=== PATIENT | male | born 1980 | race Caucasian/White ===

== ENCOUNTER 2023-09-25 12:57 | Emergency (ER) | payer OTHER ==
[2023-09-25 13:02] VITALS: BMI 22.3
[2023-09-25] MEDS ORDERED: ACETAMINOPHEN 325 MG TABLET (FP) PO ONE (13:43)
[2023-09-25] MEDS ORDERED: ACETAMINOPHEN 325 MG TABLET (FP) ONE (14:17)
[2023-09-25 16:34] LABS: BASO % 0.8 % (0-2.0); HEMATOCRIT 51.5 % (35.4-49); HEMOGLOBIN 18.2 GM/dL (11.7-16.9); LYMPH % 16.2 % (8-40); MCH 31.9 pg (25.7-33.7); MCHC 35.4 g/dl (32.0-35.9); MEAN CELL VOLUME 90.1 fl (80-96); MONO % 10.6 % (3.8-10.2); NEUT % 72.4 % (42.8-82.8); PLATELET COUNT 193 10^3/uL (134-434); RBC 5.72 M/mm3 (4.00-5.60); RDW 13.2 % (11.9-15.9); WHITE BLOOD COUNT 7.3 K/mm3 (4.0-10.0)
[2023-09-25 16:35] LABS: PH,URINE 6.5 (5.0-8.0); URINE APPEARANCE CLEAR; URINE BILIRUBIN NEGATIVE (NEGATIVE); URINE COLOR YELLOW; URINE GLUCOSE (UA) NEGATIVE (NEGATIVE); URINE KETONE TRACE (NEGATIVE); URINE LEUK ESTERASE NEGATIVE (NEGATIVE); URINE NITRITE NEGATIVE (NEGATIVE); URINE PROTEIN NEGATIVE (NEGATIVE); URINE UROBILINOGEN 0.2 mg/dL (0.2-1.0)
[2023-09-25 16:58] LABS: POTASSIUM 4.6 mmol/L (3.5-5.1)
[2023-09-25 17:00] LABS: BLOOD UREA NITROGEN 9.3 mg/dL (7-18); CALCIUM 9.5 mg/dL (8.5-10.1)
[2023-09-25 17:05] LABS: BILIRUBIN,TOTAL 0.5 mg/dL (0.2-1); TOT PROT 7.9 g/dl (6.4-8.2)
[2023-09-25 17:28] LABS: SYPHILIS W/ RPR CONF NON-REACTIVE (NONREACTIVE)
[2023-09-25 18:20] VITALS: BP 136/93; PULSE 112; RESP 20; TEMP 99.2
[2023-09-25] MEDS ORDERED: CEPHALEXIN MONOHYDRATE 500 MG CAPSULE (UD) PO ONE (18:23)
[2023-09-25] MEDS ORDERED: CEPHALEXIN MONOHYDRATE 500 MG CAPSULE (UD) ONE (18:28)
[2023-09-25 19:03] LABS: HIV INTERPRETATION NEGATIVE (NEGATIVE)
== END 2023-09-25 18:43 | disposition home or self-care (01) ==
LOC: JER 12:57
DX: R51.9 Headache, unspecified (principal); R05.9 Cough, unspecified; M79.10 Myalgia, unspecified site; R11.0 Nausea; R19.7 Diarrhea, unspecified; L03.311 Cellulitis of abdominal wall; Z20.822 Contact with and (suspected) exposure to COVID-19
CPT/HCPCS: 0241U-QW; 36415; 74177-TC; 80053; 81003; 85025; 86780; 87389; 87491; 87591; 99285-25; Q9967

== ENCOUNTER 2023-10-09 10:15 | Emergency (ER) | payer OTHER ==
[2023-10-09 10:25] VITALS: BP 142/96; RESP 18; TEMP 98.4; BMI 21.7
[2023-10-09 12:19] VITALS: PULSE 83
== END 2023-10-09 12:22 | disposition home or self-care (01) ==
LOC: JER 10:15
DX: R19.04 Left lower quadrant abdominal swelling, mass and lump (principal)
CPT/HCPCS: 99282-25

== ENCOUNTER 2024-06-09 15:59 | Emergency (ER) | payer OTHER ==
[2024-06-09 16:06] VITALS: BP 124/79; PULSE 88; RESP 20; TEMP 97.9; BMI 22.3
[2024-06-09 17:16] LABS: PH,URINE 7.5 (5.0-8.0); URINE APPEARANCE CLEAR; URINE BILIRUBIN NEGATIVE (NEGATIVE); URINE COLOR YELLOW; URINE GLUCOSE (UA) NEGATIVE (NEGATIVE); URINE KETONE TRACE (NEGATIVE); URINE LEUK ESTERASE NEGATIVE (NEGATIVE); URINE NITRITE NEGATIVE (NEGATIVE); URINE PROTEIN NEGATIVE (NEGATIVE)
[2024-06-09] MEDS ORDERED: KETOROLAC TROMETHAMINE 30 MG/1 ML VIAL ONE (17:17)
[2024-06-09] MEDS ORDERED: METHOCARBAMOL 500 MG TABLET ONE (17:18)
[2024-06-09] MEDS: KETOROLAC TROMETHAMINE 30 MG/1 ML VIAL IM ONE (17:25)
[2024-06-09] MEDS: METHOCARBAMOL 500 MG TABLET PO ONE (17:25)
== END 2024-06-09 18:42 | disposition home or self-care (01) ==
LOC: JER 15:59
PROC: 3E0133Z Introduction of Anti-inflammatory into Subcutaneous Tissue, Percutaneous Approach (ICD-10-PCS; principal; 2024-06-09)
DX: S39.012A Strain of muscle, fascia and tendon of lower back, initial encounter (principal); X50.1XXA Overexertion from prolonged static or awkward postures, initial encounter
CPT/HCPCS: 81003; 99284-25